=== PATIENT | female | born 2000 | race Caucasian/White ===

== ENCOUNTER 2023-12-16 08:54 | Emergency (ER) | payer BC, SELFPAY ==
[2023-12-16 09:13] VITALS: BP 129/86
--- NOTE | 2023-12-16 09:42 | ED.GENMED ---
History of Present Illness
General
Chief Complaint: Sleep Disturbances
Source: patient
Exam Limitations: none
Time Seen by Provider: 12/16/23 09:21
Nursing documentation reviewed up to this point in time: agreed with
Travel History
Have you had any contact with someone who has COVID-19?: No
Do you have any symptoms of coronavirus? Fever > 100 degrees, chills, cough, shortness of breath, sore throat, loss of taste or smell, muscle aches, or headache?: No
History of Present Illness
History of Present Illness:
Patient is a 23-year-old female who presents to the ER for evaluation. She reports she has had ' problems since middle school.' She complains of feeling very tired all the time and that she sleeps 16 hours. She tells me she had this evaluated
multiple times in the past by her physicians. They have checked her labs including iron and vitamin D. At one point she was low in iron but since she started control and her periods are very light she is no longer low on iron. She was told
there is nothing physically wrong. She reports she years ago was diagnosed with autism and depression recently had another reevaluation that told her she is obsessive-compulsive and reports did not state that she was depressed. She has had months
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 She has been using refresh and she tells me that made her symptoms even worse and she stopped using them.
She feels there is something' majorly wrong' and made an appoint with [facility]. She cannot recall when the appointment is but is in the future.
She feels that there is something medically wrong with her. She has a psychologist that she sees routinely and reports that she speaks with crisis several times a week and in fact [facility] is often at her house.
She does not feel that this is depression she tells me she has a 'will to live and is not suicidal.' She tells me she has been on multiple psychiatric medications ever since she was 7 years old and nothing helped. She despite doing outpatient
psychiatric therapy reports nothing is helping.
She currently lives at home with her family she is on summer break from college.
Review of Systems
Review of Systems
Allergies reviewed?: Yes
All Other Systems: ROS reviewed and negative except as documented in HPI and ROS
Constitutional: Reports fatigue (' I sleep all of the time')
EENT: Reports other (chronic dry eye )
Cardiac: Reports no symptoms
ABD/GI: Reports no symptoms
: Reports no symptoms
Musculoskeletal: Reports no symptoms
Skin: Reports no symptoms
Neurological: Reports no symptoms
Psychiatric: Reports depression; Denies anxiety, suicidal or hallucinations
Phy Exam
General Physical Exam
General Presentation: no apparent distress
General age: appears stated age
General Skin: warm and dry
General Habitus: normal
General Mental: alert
General Hydration: appears well hydrated
Eye Exam
Eye Exam: PERRL, EOMI and cornea clear
Eye Exam General: PERRL: bilateral and EOM intact: bilateral
Pupil Exam: Bilateral: round and reactive
Cardiovascular Exam
Cardiovascular Exam: regular rate/rhythm, no murmur and normal peripheral pulses
Pulmonary Exam
Pulmonary Exam: lungs clear and no respiratory distress
Neurological Exam
Neurological Exam: alert and oriented x3
[place] Coma Scale
Eye Opening: Spontaneous
Verbal Response: Oriented
Motor Response: Obeys Commands
GCS Total Score: 15
Musculoskeletal Exam
Musculoskeletal Exam: full ROM
Skin Exam
Skin Exam: normal color and warm/dry
Psychiatric Exam
Psychiatric Exam: other ([place] affect limited eye contact )
Course
Orders/Labs/Results
Orders:
Orders
12/16/23 09:45
Test Result ONCE
12/16/23 10:02
Complete Blood Count/With Diff Urgent
Comprehensive Metabolic Panel Urgent
HCG, Serum Qualitative Screen Urgent
TSH Reflex To Free T4 Urgent
Abnormal Lab Results
12/16/23
10:02
MPV 10.8 H fL
(7.4-10.4)
Chloride 108 H mmol/L
(98-107)
Glucose 147 H mg/dl
(70-99)
12/16/23 10:02
12/16/23 10:02
Vital Signs
Initial and Last Documented VS:
Initial Vital Signs
Temp Pulse Resp BP Pulse Ox
98.0 F 120 16 129/86 98
12/16/23 09:13 12/16/23 09:13 12/16/23 09:13 12/16/23 09:13 12/16/23 09:13
Last Documented Vital Signs
Temp Pulse Resp BP Pulse Ox
98.0 F 90 16 107/89 97
12/16/23 09:13 12/16/23 13:06 12/16/23 13:06 12/16/23 13:06 12/16/23 13:06
MDM/Problems Addressed
Differential Diagnosis Includes:
Not limited to depression less likely anemia hypothyroidism
MDM/Problems Addressed:
Symptoms are not consistent with any physical element. Patient has a very flat affect has a history of psychiatric issues ranging from depression to OCD and questionable autism. Patient reports she an outpatient therapist/psychologist that is very
involved with her and she has been in, [facility] multiple times. Multiple psychiatric medications and antidepressants ever since she was young child but she feels that there is something physically wrong and that this is not
psychiatric. She tells me she sleeps all the time but yet at the same time she has able to live and is not suicidal. She is in no apparent distress here in the ER I did speak with her for a very long time I do believe is more of a psychiatric
mental component than physical illness. I did however check her basic blood work including thyroid studies recommended she follow-up closely with her family doctor as well as her outpatient psychiatrist. I did offer her to see crisis but she
declined
Chronic conditions affecting care:
Questionaable diagnosis of autism depression in the past OCD
*Critical Care Note
Total Time (30-74mins, 75-104mins- exclusive of procedures): Not Applicable
ED Attending Note
-
Portions of this chart may have been created with voice recognition software.� Occasional wrong word or��sound alike� substitutions may have occurred due to the inherent limitations of voice recognition software.
Discharge Plan
Departure
Patient Disposition: Home (Routine Discharge)
Date of Disposition: 12/16/23
Time of Disposition: 13:18
Patient with high blood pressure during this ER visit?: No
Condition: Fair
Covid-19: Not Applicable
Discharge Problem:
medical evaluation
Referrals:
UNKNOWN - PT DOES,NOT KNOW [Family Provider] -
Activity Restrictions/Additional Instructions:
Follow up with your family doctor for reevaluation of all of your symptoms. In addition continue to follow-up with your outpatient psychologist and therapist.
Interventions
Interventions:
*Risk Screen - Suicide Last Done: 12/16/23 09:45
*General Assessment Last Done: 12/16/23 09:45
*Neglect/Abuse Screening Last Done: 12/16/23 09:45
ED- Fall Risk Assessment Last Done: 12/16/23 09:45
*ED COVID-19 Vaccine History Last Done: 12/16/23 09:13
*Nursing Disposition Last Done: 12/16/23 13:39
ED- Neurological Assessment Last Done: 12/16/23 09:45
ED-Psychological Assessment Last Done: 12/16/23 09:45
ED-Suicide Risk Assessment Last Done: 12/16/23 09:45
Discharge Date and Time
Discharge Date/Time: 12/16/23 13:40
Print Language: GREEK
[2023-12-16 09:45] VITALS: BMI 23.3
--- NOTE | 2023-12-16 09:51 | EDRN ---
Pt is calling her mother to decide whether or not to have blood work done. Pt asked if blood work will tell what is neurologically wrong Pt also asked how much bloodwork will cost.
--- NOTE | 2023-12-16 09:55 | EDRN ---
Pt declined IV access only allowing blood draw for ordered labs. Pt also stated to use on veins in her R hand which was done.
[2023-12-16 10:10] LABS: % Basophils 0.6 % (0-2); % Eosinophils 0.2 % (0-6); % Immature Granulocytes 0.2 % (0-0.5); % Lymphocytes 24.4 % (20.5-51.1); % Monocytes 6.1 % (1.7-9.3); % Neutrophils 68.5 % (42.2-75.2); Absolute Lymphocytes 1.3 10^3/uL (1.2-3.4); Absolute Monocytes 0.3 10^3/uL (0.1-0.6); Absolute Neutrophils 3.6 10^3/uL (1.4-6.5); Hematocrit 43.6 % (37.0-47.0); Hemoglobin 15.6 g/dL (12.0-16.0); Mean Corp Hgb Conc. 35.8 g/dL (33.0-37.0); Mean Corpuscular Hgb 30.6 pg (27.0-31.0); Mean Corpuscular Volume 85.5 fL (81.0-99.0); Mean Platelet Volume 10.8 fL (7.4-10.4); Nucleated Red Blood Cells % 0 %; Platelet Count 213 10^3/uL (130-400); Red Cell Dist. Width 11.6 % (11.5-14.5); White Blood Cell Count 5.2 10^3/uL (4.8-10.8)
[2023-12-16 10:22] LABS: HCG, Serum Qualitative Screen Negative
[2023-12-16 10:23] LABS: ALT (SGPT) 20 U/L (0-35); AST (SGOT) 23 U/L (14-36); Albumin 4.7 g/dl (3.5-5.0); Alkaline Phosphatase 63 U/L (38-126); Blood Urea Nitrogen 7 mg/dl (7-17); Calcium 9.8 mg/dl (8.4-10.2); Carbon Dioxide 23 mmol/L (22-30); Chloride 108 mmol/L (98-107); Estimated Creatinine Clearance > 125 ml/min; Glucose 147 mg/dl (70-99); Potassium 3.9 mmol/L (3.5-5.1); Sodium 140 mmol/L (135-145); Total Bilirubin 0.5 mg/dl (0.2-1.3); Total Protein 7.6 g/dl (6.3-8.2); eGFR > 60.00
[2023-12-16 10:54] LABS: TSH Reflex To Free T4 0.86 uIU/ml (0.47-4.68)
[2023-12-16 11:20] VITALS: BP 112/70
--- NOTE | 2023-12-16 11:22 | EDRN ---
Pt aded to her list of symptoms not having a good appetite saying she just 'can't eat at times' due to a 'feeling' not bulemia or anorexia or any other eating disorder stated pt. Pt also added she had 2 concussions in the past, one in middle school
and the other in her early 20's.
[2023-12-16 13:06] VITALS: BP 107/89
== END 2023-12-16 13:40 | disposition home or self-care (01) ==
LOC: EMR 08:54
PROVIDERS: Nurse Practitioner; EMERGENCY PHYSICIAN Emergency Medicine
DX: Z00.00 Encounter for general adult medical examination without abnormal findings (principal); F84.0 Autistic disorder; F42.9 Obsessive-compulsive disorder, unspecified
CPT/HCPCS: 99283; 80053; 84443; 84703; 85025